=== PATIENT | female | born 1945 | race Caucasian/White ===

== ENCOUNTER 2020-03-27 09:50 | Inpatient (IN) | payer OTHER ==
[~2020-03-27] VITALS: Ht 167.6 cm; Wt 100.8 kg
[~2020-03-27 09:50] MED LIST: AMLO10TA8 PO; HYDR12.58 PO; IRBE300T23 PO; LEVO125T5 PO; METO100T7 PO; WARF-31 PO
[2020-03-27] MEDS ORDERED: BISACODYL 10 MG SUPP.RECT. PR PRN (10:15)
[2020-03-27] MEDS ORDERED: ACETAMINOPHEN 650 MG SUPP.RECT. PR PRN (10:15)
[2020-03-27 14:25] VITALS: BP 203/90
--- NOTE | 2020-03-27 14:25 | NUR ---
Patient transferred to new room at this time. Patients daughter with patient during transfer. APOORVA Lacy with patient upon transfer.
[2020-03-27] MEDS: MORPHINE SULFATE 30 ML IV PRN (19:24)
[2020-03-27 19:30] VITALS: BP 192/90
[2020-03-27 23:26] VITALS: BP 202/93
[2020-03-28] MEDS ORDERED: SCOPOLAMINE 1.5MG PATCH. TD PRN (07:45)
--- NOTE | 2020-03-28 07:54 | PDOC ---
DATE OF SERVICE: DATE: 03/28/20 TIME: 07:53 GENERAL General: blood pressures increased. afebrile. awakens and denies any pain or itching. family in attendance. rash less red. chest some crackles, heart regular, abdomen benign. continue comfort care. VITAL SIGNS/I&O Vital Signs/I&O: Vital Signs Date Time Temp Pulse Resp B/P (MAP) Pulse Ox O2 Delivery O2 Flow Rate FiO2 03/27/20 23:26 97.8 91 14 202/93 (129) 95 Nasal Cannula 3.0 97.8 I & O 03/27/20 03/27/20 03/28/20 14:59 22:59 06:59 Intake Total 0 ml Output Total 350 ml 160 ml Balance -350 ml -160 ml ALLERGIES Allergies: Allergies Coded Allergies Type Severity Reaction Last Updated Verified No Known Drug Allergies 03/07/20 No MEDS Medications: Current Medications Medications (Trade) Dose Ordered Sig/Mariann Route PRN Reason Start Time Stop Time Status Last Admin Dose Admin Morphine Sulfate 30 ml @ 0 mls/hr CONT PRN PRN IV SEE COMMENTS 03/27/20 10:15 03/27/20 19:24 Justifications for Admission Other Justification GERALDINE BHATTI MD Mar 28, 2020 07:54
[2020-03-28 08:00] VITALS: BP 199/89
--- NOTE | 2020-03-28 10:20 | NUR ---
Patient is inpatient hospice with [facility]. SW available if any needs arise.
[2020-03-28] MEDS: MORPHINE SULFATE 30 ML IV PRN (14:38)
[2020-03-28 20:00] VITALS: BP 130/81
[2020-03-28] MEDS ORDERED: VITS A & D/LANOLIN TOPICAL OINTMENT 42GM TUBE. TP PRN (21:30)
[2020-03-29] MEDS: MORPHINE SULFATE 30 ML IV PRN (04:46)
[2020-03-29 08:00] VITALS: BP 129/41
--- NOTE | 2020-03-29 12:02 | NUR ---
Discharge Note: [facility] MERCAD[facility] [address] Patient at 1010, verified with Jessica Rawls, APOORVA. Family present and aware. Notified Dr. Castro and nursing supervisor treating and pumping, and [facility]. [place] [facility] [place] Family unsure of home at this time, notified Sharon, daughter to notify nursing supervisor treating and pumping of jail when they decide. Discontinued lines and drains: Hospice nurse removed trialysis catheter and PICC line.
--- NOTE | 2020-03-29 12:39 | PDOC ---
DATE OF SERVICE: DATE: 03/29/20 TIME: 12:30 GENERAL General: vss and afebrile. family at bedside. respirations have slowed and gurgly despite scopolamine. rash less red. heart regular, abdomen benign, lots upper respiratory noise. expect won't make it much longer. VITAL SIGNS/I&O Vital Signs/I&O: Vital Signs Date Time Temp Pulse Resp B/P (MAP) Pulse Ox O2 Delivery O2 Flow Rate FiO2 03/29/20 08:00 98.2 100 21 129/41 (70) 85 Nasal Cannula 3.0 98.2 I & O 03/28/20 03/28/20 03/29/20 15:00 23:00 07:00 Intake Total 0 ml 30 ml 0 ml Output Total 350 ml Balance -350 ml 30 ml 0 ml ALLERGIES Allergies: Allergies Coded Allergies Type Severity Reaction Last Updated Verified No Known Drug Allergies 03/07/20 No MEDS Medications: Current Medications Medications (Trade) Dose Ordered Sig/Mariann Route PRN Reason Start Time Stop Time Status Last Admin Dose Admin Vitamin A/Vitamin D (Vitamin A & D Ointment) 1 keith PRN Q1HR PRN TP SKIN PROTECTION 03/28/20 21:30 03/29/20 12:16 DC 03/28/20 22:13 Justifications for Admission Other Justification GERALDINE BHATTI MD Mar 29, 2020 12:39
--- NOTE | 2020-04-05 20:23 | DS ---
DATE OF DISCHARGE: 03/29/2020 PRIMARY DIAGNOSES: Per hospice, it would be myelodysplasia, hypovolemia, acute renal failure, septic shock, coagulopathy, thrombocytopenia, bilateral pneumonia, anemia, diffuse body rash. CHIEF COMPLAINT AND HISTORY OF PRESENT ILLNESS: This 74-year-old white female is well known to me. The patient went through acute hospitalization for all the above-mentioned problems, was culture negative throughout the stay. It became apparent that myelodysplasia or myelofibrosis was the primary etiology for all of her symptomatology and family was in agreement to going the hospice route, where she was transferred on the hospice on the and peacefully on 03/29/2020. DISPOSITION: The patient's body was transferred to the home, will be available to comfort the family as we can. GERALDINE BHATTI MD DR: GABRIELLA/darling JOB#: [id number] / [id number]
== END 2020-03-29 12:02 | disposition expired | DRG 871 ==
LOC: 1 WEST ICU 09:50 → 4 NORTH 14:24
PROVIDERS: ADMIT Family Medicine; ATTEND Family Medicine
DX: A41.9 Sepsis, unspecified organism (principal); R65.21 Severe sepsis with septic shock; J18.9 Pneumonia, unspecified organism; N17.9 Acute kidney failure, unspecified; D68.9 Coagulation defect, unspecified; D46.9 Myelodysplastic syndrome, unspecified; D69.6 Thrombocytopenia, unspecified
CPT/HCPCS: J2060; G0378